=== PATIENT | female | born 1975 | race Two or more races ===

== ENCOUNTER 2025-03-29 11:17 | Emergency (ER) | payer OTHER, MEDICAID, SELFPAY ==
--- NOTE | 2025-03-29 11:27 | EKG_ITS ---
[facility] Test Date: 2025-03-29 Pat Name: KENNY MONTENEGRO Department: Room: - Gender: Female Physical Trainer: : 1975 Requested By: ED Temporary Provider Order Number: [id number] Reading MD: ED Temporary Provider Measurements Intervals Rosie Rate: 58 P: 19 SC: 142 QRS: -38 QRSD: 88 T: 14 QT: 414 QTc: 410 Interpretive Statements SINUS BRADYCARDIA LEFT AXIS DEVIATION [QRS AXIS < -30] LOW QRS VOLTAGE IN PRECORDIAL LEADS [QRS DEFLECTION < 1.0 mV IN CHEST LEADS] POSSIBLE ANTERIOR MYOCARDIAL INFARCTION , PROBABLY OLD [30 ms Q WAVE IN V3/V4, OR R < 0.2 mV IN V4] Compared to ECG 12/13/2022 17:56:56 Low QRS voltage now present Myocardial infarct finding now present Sinus rhythm no longer present Intraventricular conduction delay no longer present /store/S0/[id number]/[id number].pdf
--- NOTE | 2025-03-29 11:46 | XR_ITS ---
Examination: PA lateral chest 2 views TECHNIQUE: Upright PA lateral chest 2 views Date and time: March 29, 2025 1234 hours INDICATIONS: Chest pain kidney 2 days ago. FINDINGS: Normal heart size. Lungs are clear. The osseous structures are intact IMPRESSION: No active disease
--- NOTE | 2025-03-29 11:47 | EDNOTE_ITS ---
<Statement entered by Shanae Morse MD - 04/09/25 11:19> As co-signing physician, I was present and available for consult prn. I concur with the plan and care as documented by the midlevel provider. ED General RME/HPI General Chief complaint: Chest Pain Stated complaint: CHEST PAIN SINCE FRIDAY Time Seen by Provider: 03/29/25 11:34 Arrival date/time: 03/29/25 11:17 CC: Chest pain HPI left anterior chest pain onset 4-1/2 days ago, worse with deep inhalation but mostly radiating straight to the back. No prior history of similar events. Waxes and wanes but never decreased has woken her up in the nighttime. States it is not noticeable when she is active but when she sits to rest the pain appears. Denies cough fever shortness of breath difficulty breathing abdominal pain nausea vomiting or diarrhea. No OTC medicines taken. Is not on any prescribed medicines and has no allergies partial hysterectomy years ago. Related Data Home Medications ?Medication ?Instructions ?Recorded ?Confirmed ibuprofen 200 mg tablet (Advil) 200 mg PO QID PRN Pain 07/16/19 07/16/19 Previous Rx's ?Medication ?Instructions ?Recorded hydrocodone 5 mg-acetaminophen 300 1 tab PO Q4H PRN pa in #14 tabs 07/16/19 mg tablet naproxen 500 mg tablet (Naprosyn) 500 mg PO BID #30 ta bs 01/04/21 Allergies Allergy/AdvReac Type Severity Reaction Status Date / Time No Known Allergies Allergy Verified 03/29/25 11:20 Review of Systems Review of Systems Narrative Review of Systems: GEN: No fever, no chills, no weight loss EYES: No discharge, no visual changes, no pain HEENT: No ear pain, no congestion, no sore throat PULM: No shortness of breath, no cough, no congestion CV: + chest pain, no dyspnea on exertion, no palpitations GI: No nausea, no vomiting, no diarrhea, no pain, no constipation : No frequency, no urgency, no dysuria MUSC/SKEL: No joint pain, no back pain SKIN: No rash PSYCH: No hallucinations, no depression HEME/LYMPH: No easy bleeding or bruising tendencies NEURO: No weakness, no headache Past Medical History Past Medical History CARDIAC: Negative Congestive Heart Failure RESPIRATORY: Negative Chronic Obstructive Pulmonary Disease (COPD) GENITOURINARY: Negative Renal Disease ENDOCRINE: Negative Diabetes Mellitus Type 1 or Diabetes Mellitus Type 2 Surgical History SURGICAL: Positive Abdominal Surgery (cholecystectomy), Hysterectomy (L hysterectomy) and Section (2003 and 2007) Social History SMOKING STATUS: Never smoker ED Exam Narrative Physical exam: [General: Obese not in any acute distress Head normocephalic HEENT: Within acceptable limits Neck is supple nontender Chest equal chest rise nontender to palpation Respiratory: Clear to auscultation no wheezes crackles or rubs CV: Rate rhythm is regular no murmurs rubs or clicks Abdomen is distended secondary to body habitus soft nontender no masses positive bowel sounds all 4 quadrants Back: No left upper back tenderness with palpation. No CVA tenderness no spinous process tenderness from cervical spine thoracic and lumbar spine Skin: Intact no petechiae rash induration ulceration or crepitus Extremities: Moving all extremity against resistance cap refill less than 2 seconds neurosensory intact Neuro: Awake alert oriented x3 Glascow coma 15 no focal deficits] Course Quality Measures none Orders Category Date Time Status EKG (ED ONLY) *Do not use* NOW Care 03/29/25 11:27 Completed EKG (ED Only) Stat Exams 03/29/25 11:27 Draft XR chest 2V Stat Exams 03/29/25 11:46 Completed CBC Stat Lab 03/29/25 13:11 Completed CMP [Comprehensive Metabolic Panel] Stat Lab 03/29/25 13:11 Completed Troponin I Stat Lab 03/29/25 13:11 Completed Urinalysis Stat Lab 03/29/25 12:53 Completed Vital Signs Vital signs: Vital Signs Temperature 98.2 F 03/29/25 11:48 Pulse Rate 55 L 03/29/25 11:48 Respiratory Rate 18 03/29/25 11:48 Blood Pressure 154/94 H 03/29/25 11:48 Pulse Oximetry (%) 100 03/29/25 11:48 Oxygen Delivery Method Room Air 03/29/25 11:48 Discharge Plan Plan Patient Disposition: HOME (Self Care) Patient condition on transfer: Stable Prescriptions/Referrals Prescriptions/Med Rec: No Action ibuprofen [Advil] 200 mg Tablet 200 mg PO QID PRN (Reason: Pain) hydrocodone-acetaminophen 5-300 mg tablet 1 tab PO Q4H MDD 4 PRN (Reason: pain) Qty: 14 0RF naproxen [Naprosyn] 500 mg tablet 500 mg PO BID Qty: 30 0RF Referrals: John Alexandre MD [Primary Care Provider] - In 1 week Problem List Clinical Impression: Chest pain in adult Patient/Caregiver Discharge Instructions Other Activity Instructions:: I have a low index of suspicion that this was cardiac related I think this is musculoskeletal in the chest wall. Please follow-up with your primary care doctor if there is worsening of symptoms return the emergency room immediately for further evaluation. Education Materials: ED Pain, Acute, Uncertain Cause Print Language: Malaysian Stand Alone Forms: Snowman Award Info., Work/School Release, Patient Portal Info Letter PA/RN PLASTIC SURGERY Supervising Physician PA/RN PLASTIC SURGERY Supervising Physician: Edgardo Acevedo ENP [facility] Clinical Information Provided by patient Medical Records Reviewed [facility] Meds/Rx Considered, not Ordered None Labs/Rad/Tests considered, not Ordered None Chronic Illness/Social Conditions which may negatively complicate care or outcome(s)-explain: None or not applicable Add or document further as needed: Obesity EKG EKG Interpretation narrative: EKG performed at 1159 shows a ventricular rate of 5 8 HI interval 142 QRS of 88 QTc of 412 this is a sinus of bradycardia with left axis deviation. When compared to an old EKG of November 2022 other than bradycardia the morphology is unchanged. Lab Interpretation Labs: interpreted by me Lab(s) interpretation(s): CBC shows no acute leukocytosis anemia thrombocytopenia CMP shows no electrolyte imbalances renal impairment transaminitis or T. bili elevation Troponin is negative Urine is negative Imaging Provider imaging interpretation(s): Chest x-ray is inter by me and read by radiology as negative Diagnosis Differential diagnosis: ACS NC pneumonia Differential dx and/or dx ruled out: Chest pain noncardiac Dispositon Disposition: Discharge Home
[2025-03-29 11:48] VITALS: BP 154/94; PULSE 55; RESP 18; TEMP 36.8; O2SAT 100
[2025-03-29 13:08] LABS: Collection Type, Urine Clean Catch
[2025-03-29 13:21] LABS: Bacteria,Urine Rare; Bilirubin,Urine Negative (Negative); Blood,Urine Negative (Negative); Color,Urine Yellow (Lt Yel-Yel); Glucose, Urine Negative (Negative); Ketones,Urine Negative (Negative); Leukocyte Esterase,Urine Negative (Negative); Nitrite,Urine Positive (Negative); PH,Urine 7.0 (5.0-7.0); Protein,Urine Trace (Neg - Trace); RBC,Urine 4 /hpf (0-3); Specific Gravity,Urine 1.025 (1.001-1.035); Squamous Epithelial Cell,Urine 6 /hpf (0-5); Urobilinogen,Urine Negative mg/dL (0.0-1.0); WBC,Urine 2 /hpf (0-5)
[2025-03-29 13:23] LABS: Clarity,Urine Hazy (Clear/Hazy)
[2025-03-29 13:26] LABS: Basophils # (Auto) 0.0 Thou/mm3 (0.0-0.2); Basophils % (Auto) 1 % (0-2.5); Eosinophils # (Auto) 0.1 Thou/mm3 (0.0-0.5); Eosinophils % (Auto) 2 % (0-10); Hematocrit 41.6 % (36.0-46.0); Hemoglobin 14.5 g/dL (12.0-16.0); Immature Granulocytes Auto 0.01 Thou/mm3 (0.00-0.00); Lymphocytes # (Auto) 2.4 Thou/mm3 (1.0-4.8); Lymphocytes % (Auto) 39 % (10-50); Mean Corpuscular HGB Conc 34.9 g/dl (31.0-37.0); Mean Corpuscular Hemoglobin 30.7 pg (25.0-35.0); Mean Corpuscular Volume 88 fL (80-100); Monocytes # (Auto) 0.3 Thou/mm3 (0.0-0.8); Monocytes % (Auto) 6 % (0-12); Neutrophils # (Auto) 3.2 Thou/mm3 (1.8-7.7); Neutrophils % (Auto) 52 % (37-80); Nucleated Red Blood Cell # 0.00 Thou/mm3 (0.00-0.00); Nucleated Red Blood Cell % 0 /100 WBC (0); Platelet Count 169 Thou/mm3 (140-440); RDW Standard Deviation 40.5 fL (36.4-46.3); Red Blood Count 4.72 Miln/mm3 (4.00-5.20); White Blood Count 6.1 Thou/mm3 (3.6-11.0)
[2025-03-29 13:58] LABS: Alanine Aminotransferase 9 U/L (10-49); Albumin, Serum 4.2 gm/dL (3.5-5.0); Albumin/Globulin Ratio 1.8 (1.2-2.2); Alkaline Phosphatase 62 U/L (46-116); Anion Gap 8 (7-16); Aspartate Amino Transferase 16 U/L (0-34); BUN/Creatinine Ratio 17 Ratio (12-20); Bilirubin,Total 0.7 mg/dL (0.3-1.2); Blood Urea Nitrogen 12 mg/dL (9-23); Calcium 9.6 mg/dL (8.3-10.6); Calcium (Corrected) 9.6 mg/dL (8.5-10.1); Carbon Dioxide 28.2 mMol/L (20.0-31.0); Chloride 109 mMol/L (98-107); Creatinine (Component) 0.7 mg/dL (0.6-1.3); Estimated Creatinine Clearance 116.2 mL/min (>60); Globulin 2.4 gm/dL (2.3-3.5); Glucose 84 mg/dL (74-106); Osmolality,Calculated 287 (275-295); Potassium 3.8 mMol/L (3.4-5.1); Sodium 145 mMol/L (136-145); Total Protein 6.6 gm/dL (5.7-8.2); Troponin I < 0.002 ng/mL (0.0-0.045); eGFR > 60 See Note
[2025-03-29 14:40] VITALS: BP 130/83; PULSE 64; RESP 16; TEMP 36.5; O2SAT 99
== END 2025-03-29 14:54 | disposition home or self-care (01) ==
PROVIDERS: Registered Nurse General Practice; Emergency Provider Emergency Medicine; PCP Family Medicine
DX: R07.89 Other chest pain (principal); R00.1 Bradycardia, unspecified
CPT/HCPCS: 36415; 71046; 80053; 81001; 84484; 85025; 99283